=== PATIENT | female | born 1980 | race Caucasian/White ===

== ENCOUNTER 2019-05-02 05:24 | Inpatient (IN) ==
[2019-05-02] MEDS ORDERED: SOLU-MEDROL IV ONE (05:39)
[2019-05-02] MEDS ORDERED: DUONEB (A & A) INH ONE ×2 (05:40→07:07)
[2019-05-02 06:00] LABS: ALLEN TEST YES; BE 4.8 mmoll (-3.0-3.0); BLOOD TYPE ARTERIAL; HCO3-(ACT) 28.4 mmoll (20.0-26.0); O2(CT) 19.4 mL/dL (15.0-23.0); PO2(98.6) 64 mmHg (60-100); SAMPLE BLOOD; SAO2 94.5 % (95.0-100.0); THB 15.4 g/dL (11.5-17.4); pH(98.6) 7.37 (7.35-7.45)
[2019-05-02 06:01] LABS: O2HB 89.9 % (95.0-99.0); PCO2(98.6) 55 mmHg (35-45)
[2019-05-02 06:02] LABS: MODALITY CANNULA
[2019-05-02 06:07] LABS: BASO# 0.05 X1000 (0.0-0.2); BASO% 0.7 % (0.0-0.8); EOS# 0.09 X1000 (0.0-0.7); EOS% 1.3 % (0.0-10.0); HEMATOCRIT 46.3 % (37.0-47.0); HEMOGLOBIN 14.5 g/dL (12.0-16.0); IMM GRAN# 0.04 X1000 (0.0-0.04); IMM GRAN% 0.6 % (0.0-0.5); LYMPH# 1.55 X1000 (1.2-3.4); LYMPH% 22.4 % (20.5-51.1); MCH 30.1 PG (27-31); MCHC 31.3 g/dL (33-37); MCV 96.3 FL (81-99); MONO# 0.74 X1000 (0.11-0.59); MONO% 10.7 % (1.7-9.3); NEUT# 4.44 X1000 (1.4-6.5); NEUT% 64.3 % (42.2-75.2); PLT 307 X1000 (130-400); RBC 4.81 XMIL (4.2-5.4); RDW 13.2 % (11.5-14.5); WBC 6.91 X1000 (4.8-10.8)
[2019-05-02] MEDS ORDERED: ATIVAN IV ONE (06:12)
--- NOTE | 2019-05-02 06:18 | PROVIDER DOCUMENTATION ---
HPI-General Adult - General Chief Complaint: Shortness of Breath Stated Complaint: sob Time Seen by Provider: 05/02/19 06:11 Source: patient, EMS Allergies/Adverse Reactions: Patient Allergies Allergy/AdvReac Type Severity Reaction Status Date / Time levofloxacin [From Levaquin] Allergy Unknown Verified 04/15/18 09:26 sulfamethoxazole AdvReac Intermediate NAUSEA/VOMI Verified 02/04/18 20:47 [From Bactrim] TING trimethoprim [From Bactrim] AdvReac Intermediate NAUSEA/VOMI Verified 02/04/18 20:47 TING metoclopramide [From Reglan] AdvReac Unknown Verified 04/15/19 10:07 Home Medications: Home Medication List Medication Instructions Recorded Confirmed Last Taken Type Bupropion HCl [Wellbutrin Xl] 300 mg PO DAILY 11/27/17 05/02/19 02/04/18 History Carvedilol [Coreg] 6.25 mg PO BID 11/27/17 05/02/19 02/04/18 History Gabapentin 400 mg PO TID 11/27/17 05/02/19 02/04/18 History Oxcarbazepine [Trileptal] 450 mg PO BID 11/27/17 05/02/19 02/04/18 History Phentermine HCl [Adipex-P] 37.5 mg PO DAILY 02/04/18 05/02/19 02/04/18 History Albuterol [Albuterol Neb] 2.5 mg INH Q4-6H PRN PRN #1 b 04/15/19 05/02/19 Unknown Rx Montelukast Chew [Singulair] 4 mg PO DAILY #10 tab 04/15/19 05/02/19 Unknown Rx Nebulizer [Compact Ultrasonic 1 ea MC Q4-6H PRN PRN #1 ea 04/15/19 05/02/19 Unknown Rx Nebulizer] Buspirone [Buspar] 10 mg PO DAILY 05/02/19 05/02/19 Unknown History - History of Present Illness -Gen Adult Nature of Presenting Problems: PT PRESENTS TO E.D. WITH WHEEZING, SOB, CP, NECK PAIN, ANXIETY. REPORTS INCREASE IN WHEEZING AEDN CHST PAIN TONIGHT COMPARED TO RECENT NIGHTS AND M ORE CHEST PAIN THAN USUAL. HAS HAD INCREASED CUGHING AND WHEEZING PAST 4-5 DAYS WITH INCRE ASE SPTUM THAT IS WHITE AND SL YELLOW. NO FEVER. OPINES THAT HARD COUGHING MAY HAVE CAUSED CP OR THAT MISSED 2 DOSES OF BUSPAR PRODUCED ANXIETY THAT PROGHT ON CHEST PAIN. NO CARDIAC HX. NOT DIAGNOSED WITH COPD BUT IS BETTER WITH NEB ALBUTEROL RECENTLY PRESCRIBED BY PCP. HX OF TACHYCARDIA TREATED WITH COREG. Review of Systems - Adult - REVIEW OF SYSTEMS - ADULT Constitutional: reports: no symptoms reported, fatique. denies: chills, fever Eyes: reports: no symptoms reported Ears, Nose, Mouth & Throat: reports: no symptoms reported Cardiovascular: reports: see HPI, chest pain Respiratory: reports: see HPI Gastrointestinal: reports: no symptoms reported Genitourinary: reports: no symptoms reported Musculoskeletal: reports: no symptoms reported Integumentary: reports: no symptoms reported Neurological: reports: no symptoms reported Psychiatric: reports: no symptoms reported Endocrine: reports: no symptoms reported Hematologic/Lymphatic: reports: no symptoms reported Allergic/Immunologic: reports: no symptoms reported All Other Systems: Reviewed and Negative Past History - Adult - PAST MEDICAL HISTORY-ADULT Review of Records: reports: Old Records Reviewed Major Childhood Illnesses: reports: denies history Cardiovascular: reports: denies history Respiratory: reports: denies history Gastrointestinal: reports: denies history, ulcer (in perirectal area) Obstetrical/Gynecological: reports: denies history Genitourinary: reports: kidney stones Musculoskeletal: reports: denies history Neurological: reports: denies history Psychiatric: reports: depression Endocrine/Immune: reports: denies history Other Conditions: reports: denies history - PRIOR SURGERIES/PROCEDURES Surgical/Procedure History: reports: reviewed, not pertinent, other (pilonidal cyst/abscess excision) - IMMUNIZATION STATUS Childhood Immunizations: See Nurse Assessment Flu Vaccine: See Nurse Assessment - FAMILY HISTORY Family History: reviewed, not pertinent Physical Exam-General - PHYSICAL EXAM-ADULT Initial Vital Signs Reviewed: Yes (Tachycardic, hypertensive, hypoxic, and afebrile) - CONSTITUTIONAL General Appearance: alert, mild distress - EYES Eyes: PERRL/EOMI, pink conjunctivae - HEAD, EARS, NOSE, MOUTH & THROAT HENMT: normocephalic/atraumatic, moist mucous membranes, normal ENT inspection, pharynx normal - NECK Neck: non-tender, full range of motion, supple, normal inspection - RESPIRATORY Respiratory: chest non-tender, no pleuratic chest pain, no accessory muscle use, respiratory distress (mild), decreased breath sounds, rhonchi, wheezing, prolonged expiration - CARDIOVASCULAR Cardiovascular: normal peripheral pulses, regular rate, rhythm, no edema, no gallop, no JVD, no murmur, tachycardia - GASTROINTESTINAL (ABDOMEN) Abdominal Exam: normal bowel sounds, non tender, soft, no organomegaly, no pulsatile mass - LYMPHATIC Lymphatic: no adenopathy - MUSCULOSKELETAL Back Exam: normal inspection, no CVA tenderness, no vertebral tenderness Extremity: normal range of motion, non-tender, normal gait, normal inspection, no pedal edema, no calf tenderness, normal capillary refill - SKIN Integumentary: normal color, normal turgor, warm/dry - NEUROLOGIC Neurologic: 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 tested, grossly normal, no motor/sensory deficits - PSYCHIATRIC Psych/Mental Status: normal mood/affect, normal thought content, normal thought process, oriented x 3 Progress - PLAN OF CARE/RESULTS Progress/Plan/Lab Results: Vital Signs - 8 hr 05/02/19 05:30 05/02/19 05:50 Temperature 98.2 F Pulse Rate 107 H 96 H Respiratory Rate 20 18 Blood Pressure 142/98 O2 Sat by Pulse Oximetry 85 L 94 L Laboratory Results - last 24 hr 05/02/19 05/02/19 05:50 05:58 WBC 6.91 RBC 4.81 Hgb 14.5 Hct 46.3 MCV 96.3 MCH 30.1 MCHC 31.3 L RDW Std Deviation 13.2 Plt Count 307 MPV 9.0 Immature Gran % (Auto) 0.6 H Neut % (Auto) 64.3 Lymph % (Auto) 22.4 [place] % (Auto) 10.7 H Eos % (Auto) 1.3 Baso % (Auto) 0.7 Immature Gran # (Auto) 0.04 Neut # (Auto) 4.44 Lymph # (Auto) 1.55 [place] # (Auto) 0.74 H Eos # (Auto) 0.09 Baso # (Auto) 0.05 Specimen Type ARTERIAL Sample Site R RADIAL pH 7.37 pCO2 55 H* pO2 64 HCO3 28.4 H Base Excess 4.8 H Oxyhemoglobin 89.9 L* ABG O2 Sat (Calculated) 19.4 ABG O2 Saturation 94.5 L ABG Carboxyhemoglobin 4.00 H ABG Methemoglobin 1.0 [place] Test YES A-a O2 Difference 67.0 Total Hemoglobin 15.4 Lactate 0.90 Blood Gas Modality CANNULA FiO2 % 28.0 Orders Category Date Time Status Cardiac Monitoring DIRECTED Care 05/02/19 05:39 Active ED: Urine Bedside NOW Care 05/02/19 05:42 Active Oxygen Therapy- ED Nursing DIRECTED Care 05/02/19 05:39 Active Saline Loc NOW Care 05/02/19 05:39 Active CHEST-PORTABLE [RAD] Stat Exams 05/02/19 05:39 Ordered ABG [RESP] Routine Lab 05/02/19 05:50 Completed BLOOD CULTURE [BLDCUL] Stat Lab 05/02/19 05:42 Uncollected CBC WITH ELECTRONIC DIFF [HEME] Stat Lab 05/02/19 05:58 Completed CK PROFILE [SP CHEM] Stat Lab 05/02/19 05:58 Received COMPREHENSIVE METABOLIC PANEL [CHEM] Stat Lab 05/02/19 05:58 Received LACTATE, PLASMA [CHEM] Stat Lab 05/02/19 05:58 Received PRO B-NATRIURETIC PEPTIDE Stat Lab 05/02/19 05:58 Received PROTIME WITH INR [COAG] Stat Lab 05/02/19 05:58 Received PTT [COAG] Stat Lab 05/02/19 05:58 Received TROPONIN T Stat Lab 05/02/19 05:58 Received UA NIMS W/REFLEX CULT [URINALYSIS] Stat Lab 05/02/19 05:42 Uncollected Albuterol 2.5MG/Ipratrop 0.5MG [Duoneb (A & A)] Med 05/02/19 05:40 Discontinued 3 ml INH NOW ONE Lorazepam [Ativan] Med 05/02/19 06:12 Once 2 mg IV NOW ONE Methylprednisolone Sod Succ [Solu-Medrol] Med 05/02/19 05:39 Discontinued 125 mg IV NOW ONE Aerosol Treatments Routine Oth 05/02/19 05:40 Completed Aerosol Treatments Stat Oth 05/02/19 05:40 Completed CP/SOB/Palp >45 yrs of Age Stat Oth 05/02/19 05:38 Ordered EKG [EKG] Stat Ther 05/02/19 05:39 Ordered Result Diagrams: 05/02/19 05:58 05/02/19 05:58 - REASSESSMENT Reassessment #1 Time Reassessed: 08:19 Status: unchanged (Seen and examined by me. Case discussed with Dr. Byrne at shift change. Patient has now received four neb treatments, still wheezes, O2 sats 92% on 2L by NC, 88% when taking of O2. Has received Rocephin and solu- medrol, will add Zithromax and pulmicort neb and ask hospitalist to admit fo obs) - EKG 1 Time of EKG reading by physician:: 05:36 EKG Read and Signed by:: Rosas Byrne EKG Interpretation (*Must complete 3 of following elements*): Abnormal Rate: 110 Rhythm: NSR [place]: normal (SINUS TACHY, NONSPECIFIC ST CHANGES) QRS: normal MS Interval: normal ST Wave: non-specific ST changes - XRAY 1 XRAY Study: Chest Impression: Normal, See EMR Report - CONSULTS/PCP/HOSPITALIST Notification #1 *Consult/PCP/Hospitalist*: MALOU Merritt, underground production foreperson for hospitalist Time Discussed: 08:23 Reason/Comments: requests CTA chest to be ordered. Consult Disposition: Will see in ED, Admit - CHANGE OF SHIFT REPORT (ED Provider) 1 Report Given and Care Transferred to:: DR YATES Time of Transfer: 07:10 Departure - Departure Date of Disposition Decision: 05/02/19 Time of Disposition Decision: 08:23 DIAGNOSIS: COPD exacerbation, Hypoxemia requiring supplemental oxygen Disposition: ADMITTED INPATIENT 09 Certified Medical Emergency: Emergent Condition: Fair Referrals and Follow-Ups: MALINDA FELICIANO [Primary Care Provider] - - Critical Care Note This patient required my direct & personal management of CC.: Yes Total Time (mins): 40 (given a total of 5 neb treatments, other meds for respiratory difficulties. ) Critical Care Statement: This patient required my direct personal management to treat or rule out processes, the absence of which, could potentiallly result in sudden, clinically significant life or limb threatening deterioration. Attestation - Physician/ BIJAN Attestation Patient care was provided by Advanced Practice Provider:: No The physician spent face to face time with patient:: Yes Advanced Practice Provider documentation review:: Supervising physician onsite and consulted in the evaluation and care of this patient. The physician did have a face to face encounter with the patient.
[2019-05-02 06:26] LABS: AGAP 13; ALB/GLOB RATIO 1.6; ALKALINE PHOSPHATASE 102 U/L (32-104); BUN 7 mg/dL (8-22); CALCIUM 8.8 mg/dL (8.8-10.2); CHLORIDE 95 mmol/L (98-107); CK PROFILE 42 U/L (24-173); COSMO 272; CREATININE 0.6 mg/dL (0.5-0.9); ESTIMATED GFR > 60; GLUCOSE 111 mg/dL (70-104); GOT 14 U/L (10-30); GPT 18 U/L (10-36); POTASSIUM 3.7 mmol/L (3.5-5.1); SODIUM 137 mmol/L (136-145); TCO2 29 mmol/L (25-35); TOTAL BILIRUBIN 0.28 mg/dL (0.20-1.00); TOTAL PROTEIN 6.5 g/dL (6.3-8.3)
[2019-05-02 06:34] LABS: URINE SOURCE CLEAN CATCH
[2019-05-02 06:36] LABS: INR 1.01; PROTIME 13.4 Seconds (11.0-16.0); PTT 30.1 Seconds (22.3-41.8)
[2019-05-02 06:38] LABS: BILIRUBIN URINE NEGATIVE (NEGATIVE); BLOOD URINE TRACE (NEGATIVE); COLOR YELLOW; GLUCOSE URINE NEGATIVE (NEGATIVE); KETONE URINE TRACE mg/dL (NEGATIVE); LEUKOCYTES URINE SMALL (NEGATIVE); NITRITE URINE NEGATIVE (NEGATIVE); PROTEIN URINE TRACE mg/dL (NEGATIVE); SP GRAVITY URINE 1.016; TURBIDITY URINE CLEAR (CLEAR); UROBILINOGEN URINE NORMAL (NORMAL)
[2019-05-02 06:39] LABS: UR EPITHELIAL CELLS <10 /HPF (<10); URINE BACTERIA 1+ /HPF; URINE RBC <10 /HPF (<10); URINE WBC <10 /HPF (<10)
--- NOTE | 2019-05-02 07:04 | Diag Imaging Result Doc PS360 ---
EXAM: CHEST-PORTABLE 05/02/2019 HISTORY: sob TECHNIQUE: AP portable upright at 0632 COMMENT: Considering differences in technique there has been no significant change since 04/15/2019. The inspiration is slightly less optimal. IMPRESSION: No evidence of acute disease. Electronically signed by Abel Zheng 05/02/2019 7:02 AM
[2019-05-02] MEDS ORDERED: BUSPAR PO ONE (07:06)
[2019-05-02] MEDS ORDERED: ROCEPHIN 1 GM in NS 50 ML IV ONE (07:06)
[2019-05-02] MEDS ORDERED: NS 1,000 ML IV ONE (07:07)
--- NOTE | 2019-05-02 07:09 | EKG Report ---
Test Performed on : 05/02/2019 05:34:10 AM Test Reason : sob Blood Pressure : / mmHG Vent. Rate : 110 BPM Atrial Rate : 110 BPM P-R Int : 120 ms QRS Dur : 088 ms QT Int : 366 ms P-R-T Axes : 071 008 043 degrees QTc Int : 495 ms Sinus tachycardia. Nonspecific ST abnormality Abnormal ECG When compared with ECG of 11-NOV-2012 18:35, No significant change was found Unconfirmed Result
[2019-05-02] MEDS ORDERED: PULMICORT INH ONE (08:18)
[2019-05-02] MEDS ORDERED: ZITHROMAX 500 MG/NS 500 MG/250 ML IVPB IV ONE (08:18)
[2019-05-02] MEDS ORDERED: ZOFRAN IV PRN (08:54)
[2019-05-02] MEDS ORDERED: DUONEB (A & A) INH PRN (08:54)
[2019-05-02] MEDS ORDERED: PHENERGAN PO PRN (09:28)
--- NOTE | 2019-05-02 10:04 | Diag Imaging Result Doc PS360 ---
EXAM: CT ANGIOGRM PULMONARY ARTERIES 05/02/2019 HISTORY: COPD exacerbation, hypoxemia TECHNIQUE: This exam was performed using automated exposure control, adjustment of mA or kV according to patient size, and/or use of iterative reconstruction technique. COMMENT: 3-D MIPS were performed. There are no previous studies. There are no filling defects in the pulmonary arteries. The aorta is not distended and there is no evidence of dissection. There are no abnormal fluid collections. There is no evidence of significant adenopathy. There is a groundglass appearing nodule present in the mid left upper lobe on image 36. No airspace abnormalities are otherwise demonstrated. The regional skeleton is unremarkable. IMPRESSION: Groundglass nodule in the left upper lobe. The possibility of mild pneumonitis/pneumonia cannot be excluded. Six-month follow-up is recommended to ensure the resolution of this abnormality. Electronically signed by Abel Zheng 05/02/2019 10:02 AM
[2019-05-02] MEDS: DUONEB (A & A) INH SCH ×4 (11:23→23:06)
--- NOTE | 2019-05-02 13:09 | HISTORY AND PHYSICAL ---
PRIMARY CARE PROVIDER: Is located, I believe a nurse practitioner, at [facility] in the [facility]. CHIEF COMPLAINT: Shortness of breath. HISTORY OF PRESENT ILLNESS: Ms. Iman Lazo is a 39-year-old female with a medical history of morbid obesity with BMI being 54.9, tachycardia for which she takes Coreg for, nephrolithiasis, gallstones but has since had her gallbladder removed, pilonidal cyst with abscess excision and drainage, and recently had a vaping history and currently smokes cigarettes who presents with six months' complaints of wheezing. She has had a cough for 2 weeks. Around 2 weeks ago she was positive for flu and took Tamiflu for it. This past Sunday, which was about 5 days ago, she started having chest pain with her cough, increasing dyspnea with activity, no fever but positive for chills, and a [id number] productive cough. For the last 2 days she has had a headache on and off. She felt like the symptoms had worsened over the last 24 hours as if she felt like she was suffocating or drowning. She states that currently she smokes cigarettes and she has smoked for the last 3 months and prior to that she had been vaping for 2 years. The only reason she switched to cigarettes was because of what she had been hearing about the dangers of vaping. We will admit to the medical floor. There is no history of COPD or asthma but she does have signs of CO2 retention with a normalized pH. We will consult Pulmonary for further recommendations. PAST MEDICAL HISTORY: 1. Morbid obesity. BMI is 54.9. Currently she is on Adipex to try and lose weight. 2. Pilonidal cyst with a history of incision and drainage. She states that it still drains even after 2 years. 3. Nephrolithiasis but never had any procedures for it. 4. Gallstones and is now status post cholecystectomy. 5. GERD. 6. Chronic gastritis. 7. Bipolar with anxiety and depression. 8. Peripheral neuropathy. SURGICAL HISTORY: 1. Cholecystectomy. 2. [place] teeth extraction. 3. Pilonidal cyst or sinus incision and drainage in the perirectal region. SOCIAL HISTORY: Long-time smoker but for the last 2 years she vaped up until 3 months ago and now she smokes less than a half pack per day of cigarettes. She felt like vaping may be the source of her respiratory problems and that is why she switched. She only drinks alcohol about once every 2 months, maybe a half a glass of wine. Denies any illicit drug use. She lives at home with her partner. She currently does not work. FAMILY HISTORY: She is adopted but she has 2 biological sisters and both have thyroid problems and endometriosis. ALLERGIES: Levofloxacin, Bactrim, Reglan, and Zofran. Apparently IV Zofran gives her a rash. HOME MEDICATIONS: 1. Phentermine 37.5 mg p.o. daily. 2. BuSpar 10 mg p.o. daily. 3. Coreg 6.25 mg p.o. twice daily. 4. Neurontin 400 mg p.o. t.i.d. 5. Trileptal 450 mg p.o. twice daily. 6. Wellbutrin 300 mg p.o. daily. 7. Albuterol nebulizers every 4 to 6 hours p.r.n. 8. Singulair 4 mg p.o. daily. REVIEW OF SYSTEMS: Fourteen point review of systems are complete and all are negative except for those mentioned above in the HPI. PHYSICAL EXAMINATION: VITAL SIGNS: Temperature is 98, heart rate 107, respiratory rate 22, blood pressure 146/88, and O2 saturation 94% on 4 L nasal cannula. GENERAL: Ms. Iman Lazo is a 39-year-old female. She is in no acute distress. She is mildly short of breath but she is able to answer questions appropriately. HEENT: Atraumatic, normocephalic. Pupils are equal, round, and reactive to light. Extraocular movements are intact. Mucous membranes are moist. NECK: Trachea is midline. CARDIOVASCULAR: S1, S2. Tachycardic rate and rhythm. No rubs, gallops, or murmurs. No lower extremity edema. Pulse 2 dorsalis and radial pulses. Negative for JVD or carotid bruits. PULMONARY: Expiratory wheezes noted throughout. No accessory muscle use just very mild work of breathing. She is tolerating 4 L nasal cannula. GI: Obese, round, soft, nontender, and nondistended. Positive bowel sounds times 4. EXTREMITIES: Moves all extremities equally and with full range of motion. NEURO: Alert and oriented times 3. Follows commands. Sensory is intact. SKIN: Warm, dry, and intact. LABORATORY DATA: White blood cells 6,000, hemoglobin 14, hematocrit 46, and platelet count 307. INR is 1.01. PTT is 30.1. D-dimer is 0.27. ABG on nasal cannula: pH 7.37, pCO2 55, pO2 64, bicarb 28, base excess 4.8, and saturation 89.9%. Lactate is 0.9. Sodium 137, potassium 3.7, BUN 7, creatinine 0.6, glucose 111, calcium 8.8, bilirubin 0.28, AST 14, and ALT 18. CK 42, troponin less than 0.01, and proBNP 69. Albumin 4. Lactate 0.7. Urinalysis: Trace protein, trace ketones, trace blood, small leukocytes, and 1+ bacteria. IMAGING: Negative for PE per phone report by Dr. Zheng. Impression: Ground glass nodule in the left upper lobe. Possibility of mild pneumonitis or pneumonia cannot be excluded. A 6 month followup is recommended to ensure resolution of this abnormality. Chest x-ray: No evidence of acute disease. EKG: Sinus tachycardia, rate 110. QTc is 495. ASSESSMENT AND PLAN: 1. Acute hypoxemic respiratory failure secondary to possible pneumonitis or pneumonia and possible history of undiagnosed asthma or chronic obstructive pulmonary disease. Also, history of 2 years of using vape. This was discussed with Dr. Abel Zheng and he felt like there was no obvious signs of a vape-related type injury on imaging. She currently is a smoker. So, we will do antibiotics. There was no PE on the imaging either so IV fluids and antibiotics. We will do a pulmonary consult for appropriate diagnosis of the patient's possible chronic lung disease. Symptoms have been going on for about 6 months and she did also have the flu around 2 weeks ago. 2. Pilonidal cyst or sinus that continuously drains. It has drained for the last 2 years. Currently she is having an echocardiogram done so I was unable to evaluate this location so we will need to still look at that. White count is normal. She had incision and drainage of it around 2 years ago in [place]. 3. Tachycardia. She states that she takes Coreg for her tachycardia. She runs in the one-teens to the 120s. She denies having high blood pressure. 4. Gastroesophageal reflux disease and chronic gastritis but she is not on anything at home for it. 5. Bipolar disorder with anxiety and depression. Continue the Trileptal. 6. Peripheral neuropathy. Continue Neurontin. 7. Morbid obesity with a body mass index of 54.9. She is on Adipex at home. I am not sure for how long she has been on that to try and lose weight. Currently she is going to have an echocardiogram to evaluate any kind of heart dysfunction from this and the morbid obesity. She denies having any history of heart failure. 8. Tobacco abuse. Cessation was discussed. 9. Deep vein thrombosis prophylaxis with Lovenox. Dictated by MALOU Gonzalez for Josue Urbina MD cc: MALOU Gonzalez MD
[2019-05-02] MEDS: WELLBUTRIN XL PO SCH (13:55)
[2019-05-02] MEDS: LOVENOX SUBQ SCH (13:56)
[2019-05-02] MEDS: COREG PO SCH ×2 (13:56→20:33)
[2019-05-02] MEDS: NICODERM PATCH TD SCH (13:56)
[2019-05-02] MEDS: NS 1,000 ML IV SCH (13:56)
[2019-05-02] MEDS: TRILEPTAL PO SCH ×2 (13:56→20:33)
[2019-05-02] MEDS: SOLU-MEDROL IV SCH ×2 (14:05→20:34)
[2019-05-02] MEDS: NEURONTIN PO SCH ×2 (14:05→20:33)
[2019-05-02] MEDS: TYLENOL PO PRN ×2 (14:06→20:34)
[2019-05-02] MEDS: PULMICORT INH SCH (19:19)
--- NOTE | 2019-05-02 19:42 | ECHO REPORT ---
ORDER DATE: 05/02/2019 INDICATION: Shortness of breath. Chest pain. FINDINGS: This is an extremely difficult study with poor visualization of the endocardial borders. 1. The right heart structures are extremely difficult to visualize. There is probable normal RV systolic function but overall size of the right ventricle is difficult to estimate. The valvular structures on the right side of the heart are also difficult to visualize. 2. The left atrium is probably normal in size but again, very difficult to visualize and accurately measure. 3. No mitral valve prolapse. Trace mitral regurgitation. No evidence of stenosis. 4. The left ventricle is normal in size with an end-diastolic dimension of 3.8 cm. No clear evidence of left ventricular hypertrophy with a septal wall thickness of 1.1 cm. LV systolic function appears normal with an estimated EF of 60% to 65%. It is extremely difficult to assess for segmental abnormalities but it does not appear to be present. 5. Aortic valve appears to open well with no evidence of stenosis or insufficiency. 6. Aorta appears normal in visualized segments. 7. No pericardial effusion seen. cc: MD Shaina Anderson CRNP
--- NOTE | 2019-05-02 20:55 | HISTORY AND PHYSICAL ---
ADDENDUM: I have seen and examined Ms. Lazo today, who presented with shortness of breath for the past 2 to 3 days, preceded initially with cough. She thought he had the flu. He took Tamiflu, but the symptoms have been lingering around. The cough became productive with yellowish sputum. For the past 24 hours, she has remained remarkably symptomatic with shortness of breath. She came to the emergency department where she was evaluated, was found to be 85% on room air, and an ABG showed a pCO2 of 55, a PO2 of 64, with oxygen hemoglobin 89.9, but carboxyhemoglobin level was 4.0. PHYSICAL EXAMINATION: GENERAL: Ms. Lazo is morbidly obese with BMI of 54.9. CHEST: Air entry is bilaterally reduced. A few distant wheezes bilaterally. IMAGING STUDIES: CTA was negative for pulmonary emboli. There are ground-glass nodules in the left upper lobe, possibility of mild pneumonitis/pneumonia cannot be excluded. ASSESSMENT: 1. Acute hypoxemic respiratory failure. 2. Acute on chronic hypercarbic respiratory failure. 3. Morbid obesity with suspicion of obesity-hypoventilation syndrome and obstructive sleep apnea. 4. History of vaping with possibly pneumonitis associated with it. 5. Tobacco use and abuse. Patient has been counseled. 6. History of bipolar disorder. PLAN: For now, we are going to continue with supplemental oxygen. We will also use BiPAP, especially when patient is going to sleep. We are going to repeat her lab work for tomorrow. Ms. Lazo is started on nebulization, antibiotics, and steroid therapy. We will re-evaluate her in the morning and go from there. Please refer to the details of the history and physical which has been dictated in the chart by the nurse practitioner. cc: Josue Urbina MD
[2019-05-03] MEDS: SOLU-MEDROL IV SCH ×4 (01:28→22:30)
[2019-05-03] MEDS: DUONEB (A & A) INH SCH ×6 (03:29→22:57)
[2019-05-03 03:52] LABS: ALLEN TEST YES; BE 3.6 mmoll (-3.0-3.0); BLOOD TYPE ARTERIAL; HCO3-(ACT) 27.5 mmoll (20.0-26.0); METHB 0.9 % (0.0-1.5); O2(CT) 19.4 mL/dL (15.0-23.0); PO2(98.6) 56 mmHg (60-100); SAMPLE BLOOD; SAO2 92.1 % (95.0-100.0); THB 15.4 g/dL (11.5-17.4); pH(98.6) 7.35 (7.35-7.45)
[2019-05-03 03:54] LABS: MODALITY CANNULA; O2HB 89.7 % (95.0-99.0); PCO2(98.6) 56 mmHg (35-45)
[2019-05-03] MEDS: NS 1,000 ML IV SCH (04:24)
[2019-05-03] MEDS ORDERED: NS 50 ML ONE (06:03)
[2019-05-03] MEDS: NEURONTIN PO SCH ×4 (06:18→20:26)
[2019-05-03] MEDS: PROTONIX PO SCH (06:18)
[2019-05-03 06:59] LABS: BASO# 0.01 X1000 (0.0-0.2); BASO% 0.1 % (0.0-0.8); HEMATOCRIT 45.6 % (37.0-47.0); HEMOGLOBIN 14.9 g/dL (12.0-16.0); IMM GRAN# 0.05 X1000 (0.0-0.04); IMM GRAN% 0.6 % (0.0-0.5); LYMPH# 1.47 X1000 (1.2-3.4); LYMPH% 17.1 % (20.5-51.1); MCHC 32.7 g/dL (33-37); MONO# 0.68 X1000 (0.11-0.59); MONO% 7.9 % (1.7-9.3); MPV 9.5 FL (7.4-10.4); NEUT# 6.39 X1000 (1.4-6.5); NEUT% 74.3 % (42.2-75.2); PLT 357 X1000 (130-400); RDW 13.1 % (11.5-14.5)
[2019-05-03 07:17] LABS: AGAP 14; ALB/GLOB RATIO 1.5; ALBUMIN 4.3 g/dL (3.5-5.0); ALKALINE PHOSPHATASE 104 U/L (32-104); BUN 5 mg/dL (8-22); CALCIUM 9.2 mg/dL (8.8-10.2); CHLORIDE 98 mmol/L (98-107); COSMO 276; CREATININE 0.7 mg/dL (0.5-0.9); ESTIMATED GFR > 60; GLUCOSE 128 mg/dL (70-104); GOT 11 U/L (10-30); GPT 14 U/L (10-36); POTASSIUM 3.7 mmol/L (3.5-5.1); SODIUM 139 mmol/L (136-145); TCO2 27 mmol/L (25-35); TOTAL BILIRUBIN 0.18 mg/dL (0.20-1.00); TOTAL PROTEIN 7.1 g/dL (6.3-8.3)
[2019-05-03] MEDS: PULMICORT INH SCH ×2 (07:30→19:21)
[2019-05-03] MEDS: COREG PO SCH ×2 (08:32→20:24)
[2019-05-03] MEDS: WELLBUTRIN XL PO SCH (08:32)
[2019-05-03] MEDS: ROCEPHIN 1 GM in NS 50 ML IV SCH (08:32)
[2019-05-03] MEDS: TRILEPTAL PO SCH ×2 (08:32→20:23)
[2019-05-03] MEDS: NICODERM PATCH TD SCH (08:33)
[2019-05-03] MEDS: LOVENOX SUBQ SCH (08:33)
[2019-05-03] MEDS ORDERED: BUSPAR PO SCH (09:00)
[2019-05-03] MEDS ORDERED: SINGULAIR PO SCH (09:00)
[2019-05-03] MEDS: DOXYCYCLINE 100 MG in NS 250 ML IV SCH ×2 (13:11→22:06)
--- NOTE | 2019-05-03 14:57 | PROGRESS NOTE ---
DATE: 05/03/2019 SUBJECTIVE: This morning Ms. Lazo refers to be doing a whole lot better. She was still on a nasal cannula. OBJECTIVE: Vital signs: Blood pressure is 142/82, pulse of 103, respiration is 16, temperature is 98 degrees. Patient was saturating 93%. General: Ms. Lazo is a 39-year-old morbidly obese female. She is in bed. No distress. HEENT: Mucosa is pink and moist. Anicteric. Acyanotic. Neck: Supple. Chest: Air entry is bilaterally reduced. There is diffuse end expiratory wheezing. Cardiovascular: Regular rate and rhythm. Abdomen: Soft, nontender. Bowel sounds present. Extremities: No pedal edema. DIETARY ASSISTANT: Patient is awake, alert, and oriented. LABORATORY DATA: CBC is unremarkable. Chemistry is completely within normal range. IMAGING STUDIES: Were reviewed yesterday. Echocardiogram which was done shows ejection fraction of 60 to 65 percent. ASSESSMENT: 1. Acute hypoxemic respiratory failure. Patient continues to be needing supplemental oxygen. 2. Acute on chronic hypercarbic respiratory failure, most likely due to underlying COPD. 3. Morbid obesity with suspected obstructive sleep apnea. 4. Tobacco use and abuse. Patient has been counseled. 5. History of vaping with possible vaping associated pneumonitis. We will continue with bronchodilation therapy. 6. Suspected undiagnosed COPD. Patient will need to follow up with Pulmonary Medicine for PFTs. 7. History of bipolar disorder. PLAN: In general, I think Ms. Lazo is doing a lot better. She refers to be doing much better today. She is still on a supplemental oxygen and she is pending Pulmonary Medicine consult. Will be pending recommendations from Pulmonary and then go from there. Ms. Lazo might be stable for discharge if it is okay with Pulmonary Medicine. cc: Josue Urbina MD
[2019-05-03] MEDS: BUSPAR PO SCH ×2 (15:20→20:23)
--- NOTE | 2019-05-03 17:00 | Diag Imaging Result Doc PS360 ---
EXAM: CHEST-2 VIEWS HISTORY: short of breath TECHNIQUE: Two views COMPARISON: 05/02/2019 FINDINGS: The lungs are well expanded. The heart is not enlarged. The vessels are not distended. There are no infiltrates. No pleural effusions. IMPRESSION: No acute abnormality. Electronically signed by Marek Kirk 05/03/2019 4:58 PM
[2019-05-03] MEDS ORDERED: NS 250 ML ONE (22:15)
--- NOTE | 2019-05-03 22:35 | PULMONOLOGY CONSULTATION ---
DATE: 05/03/2019 REQUESTING CLINICIAN: Dr. Sonu Urbina. REASON FOR CONSULTATION: Hypoxemia; could the patient have asthma or COPD that has never been diagnosed? HISTORY OF PRESENT ILLNESS: Ms. Lazo is a 39-year-old white female with bipolar disorder, morbid obesity and a BMI greater than 50, who had an episode of influenza about 2 weeks ago. This was flu. She had a positive flu test and received Tamiflu. She improved from this acute illness, and subsequently developed cough with increased sputum production, increased wheezing, and increasing shortness of breath. The patient has a history of tobacco use since her teenage years. She did vape for 2 years but restarted smoking about 3 months ago. She has been initiated on antibiotics, steroids and bronchodilators on this admission, with symptomatic improvement. PAST MEDICAL HISTORY: 1. Bipolar disorder. 2. Ongoing tobacco use/nicotine addiction. 3. Morbid obesity with a BMI of 55. She is currently on Adipex and reports she has lost 20 pounds. 4. History of nephrolithiasis. 5. Status post cholecystectomy. 6. Reflux disease. 7. Peripheral neuropathy. 8. Bipolar disorder. SOCIAL HISTORY: Ongoing tobacco use as per HPI. Occasional alcohol use. She denies illicit drug use. FAMILY HISTORY: Noncontributory to the current presentation. REVIEW OF SYSTEMS: As noted in the HPI. PHYSICAL EXAMINATION: Physical exam reveals an obese white female resting comfortably and in no distress. BP 112/52, heart rate 103, respiratory rate 16, oxygen saturation 99% on 2 L per nasal cannula.HEENT: Pupils are equal and reactive. Oropharynx appears clear. Neck is supple. Chest reveals wheezing and rhonchi bilaterally. Cardiac exam: S1, S2. Abdomen is soft. Extremities reveal trace edema. LABORATORY DATA: Arterial blood gas on admission to the hospital, pH 7.37, pCO2 of 55, pO2 of 64 with a carboxyhemoglobin level of 4. Arterial blood gas this morning on 4 L per nasal cannula, pH 7.35, pCO2 of 36, pO2 of 56. DIAGNOSTIC DATA: CT pulmonary angiogram reveals ground-glass nodule in the left upper lobe of unknown significance. IMPRESSION: A 39-year-old female with: 1. Acute hypoxemic respiratory failure. 2. Acute bronchitis following an influenzal illness. 3. Chronic hypercapnic respiratory failure, likely related to super morbid obesity. 4. Ongoing tobacco use. 5. Ground-glass pulmonary nodule. DISCUSSION: A 39-year-old with problems outlined above. The patient has an acute illness following an influenzal illness. She cannot be diagnosed with asthma or COPD at this time, given the acute nature of her respiratory process. She does have chronic hypercapnic respiratory failure, but this is most likely related to her super morbid obesity. RECOMMENDATIONS: 1. Agree with steroids, current antibiotics and nebulizer regimen as you are doing. 2. Ongoing smoking cessation discussion/recommendation. 3. Long-term, the patient would benefit from significant weight loss. She is unlikely to make it to the age of 62 if she continues to smoke and does not lose a significant amount weight. 4. Recommend outpatient CT scan of the thorax as recommended by the radiologist to follow up the nonspecific ground-glass nodule. cc: Amish Thakkar MD
[2019-05-04] MEDS: DUONEB (A & A) INH SCH ×2 (03:20→08:00)
[2019-05-04] MEDS: PROTONIX PO SCH (06:05)
[2019-05-04] MEDS: SOLU-MEDROL IV SCH (06:06)
[2019-05-04 07:12] LABS: BASO# 0.02 X1000 (0.0-0.2); BASO% 0.2 % (0.0-0.8); EOS# 0.15 X1000 (0.0-0.7); EOS% 1.4 % (0.0-10.0); HEMATOCRIT 47.4 % (37.0-47.0); HEMOGLOBIN 14.6 g/dL (12.0-16.0); IMM GRAN# 0.11 X1000 (0.0-0.04); LYMPH# 1.73 X1000 (1.2-3.4); LYMPH% 16.4 % (20.5-51.1); MCHC 30.8 g/dL (33-37); MCV 97.5 FL (81-99); MONO% 5.7 % (1.7-9.3); MPV 9.7 FL (7.4-10.4); NEUT# 7.93 X1000 (1.4-6.5); NEUT% 75.3 % (42.2-75.2); PLT 301 X1000 (130-400); RBC 4.86 XMIL (4.2-5.4); RDW 13.3 % (11.5-14.5); WBC 10.54 X1000 (4.8-10.8)
[2019-05-04] MEDS ORDERED: FLU VACCINE IM ONE (07:31)
[2019-05-04 07:37] LABS: AGAP 14; ALB/GLOB RATIO 1.4; ALKALINE PHOSPHATASE 88 U/L (32-104); BUN 10 mg/dL (8-22); CHLORIDE 100 mmol/L (98-107); COSMO 277; CREATININE 0.7 mg/dL (0.5-0.9); ESTIMATED GFR > 60; GLUCOSE 137 mg/dL (70-104); GOT 15 U/L (10-30); GPT 17 U/L (10-36); SODIUM 138 mmol/L (136-145); TCO2 24 mmol/L (25-35); TOTAL BILIRUBIN 0.17 mg/dL (0.20-1.00); TOTAL PROTEIN 6.8 g/dL (6.3-8.3)
[2019-05-04 07:51] VITALS: BP 138/77
[2019-05-04] MEDS: PULMICORT INH SCH (08:00)
[2019-05-04] MEDS: LOVENOX SUBQ SCH (10:18)
[2019-05-04] MEDS: ROCEPHIN 1 GM in NS 50 ML IV SCH (10:18)
[2019-05-04] MEDS: DOXYCYCLINE 100 MG in NS 250 ML IV SCH (10:19)
[2019-05-04] MEDS: NICODERM PATCH TD SCH (10:24)
[2019-05-04] MEDS: COREG PO SCH (10:24)
[2019-05-04] MEDS: WELLBUTRIN XL PO SCH (10:24)
[2019-05-04] MEDS: BUSPAR PO SCH (10:25)
[2019-05-04] MEDS: TRILEPTAL PO SCH (10:25)
[2019-05-04] MEDS: NEURONTIN PO SCH (10:25)
[2019-05-04 13:05] LABS: CALCIUM 10.3 mg/dL (8.8-10.2)
--- NOTE | 2019-05-05 07:54 | DISCHARGE SUMMARY ---
ADMISSION DATE: 05/02/2019 DISCHARGE DATE: 05/04/2019 DISPOSITION: Home. FOLLOWUP: 1. Ms. Karla Higuera. 2. Dr. Thakkar. CONSULTATIONS DURING THIS ADMISSION: Pulmonary Medicine was consulted. The patient was seen by Dr Thakkar. INVASIVE PROCEDURES DONE DURING THIS ADMISSION: None. IMAGING STUDIES OF SIGNIFICANCE: 1. A chest x-ray on admission showed no evidence of acute disease. 2. A CTA of the lungs done on 05/02/2019 shows ground-glass nodules in the left upper lobe, possibility of mild pneumonitis. Pneumonia cannot be excluded. There was recommendation to follow up with repeat studies in 6 months. 3. Echocardiogram showed an ejection fraction of 60% to 65%. No wall motion abnormality, and no major valvular abnormality. 4. A repeat chest x-ray did show no acute disease. ADMISSION DIAGNOSES: 1. Acute hypoxemic respiratory failure. 2. Pilonidal cyst. 3. Tachycardia. 4. History of bipolar disorder. 5. Peripheral neuropathy. DISCHARGE DIAGNOSES: 1. Acute hypoxemic respiratory failure, improved. 2. Acute on chronic hypercarbic respiratory failure. 3. Morbid obesity with suspected obstructive sleep apnea. 4. Tobacco use and abuse. 5. History of vaping with possible vaping-associated pneumonitis. 6. Suspected undiagnosed chronic obstructive pulmonary disease. 7. History of bipolar disorder. DISCHARGE MEDICATIONS: 1. Bupropion 300 mg p.o. daily. 2. Carvedilol 6.25 b.i.d. 3. Gabapentin 1200 four times per day. 4. Oxcarbazepine 450 b.i.d. 5. Phentermine 37.5 p.o. daily. 6. Albuterol. 7. Buspirone 30 mg p.o. daily. 8. Augmentin 875 b.i.d. 9. Nicotine patch. 10. Prednisone 40 mg p.o. daily. 11. Doxycycline 100 mg b.i.d. 12. Pantoprazole 40 mg p.o. daily. PRESENTING COMPLAINT: Shortness of breath. HISTORY OF PRESENTING COMPLAINT: Ms. Lazo is a 39-year-old female who was recently treated for influenza illness with Tamiflu, who came to the emergency department because of continued shortness of breath, cough. The patient was initially evaluated and was found to be saturating 85% on room air, was started on supplemental oxygen. Initial chest x-ray was unremarkable. A chest CT scan did suggest ground-glass nodular opacities in the upper lobes. Ms. Lazo was subsequently admitted for further medical care. HOSPITAL COURSE: Ms. Lazo was admitted to the medical floor and was started on IV antibiotics. Bronchodilation therapy and steroids were also added. She was evaluated by Pulmonary Medicine because of concern for possible undiagnosed COPD. However, because of the acute nature of her illness, it is recommended that she follows up on an outpatient basis for further testing, including possible PFTs. Ms. Lazo continued to improve. Bronchospasm resolved during the hospital course. We think she is fairly stable to be discharged. She will follow up with Dr. Kearns and with her primary care doctor. On the day of the discharge, she refers to be doing a lot better. Chest exam did show mild prolonged expiratory phase of respiration, but there was no wheezing, no rhonchi. She is going to be discharged in stable condition. She is currently saturating 95% on room air, so she does not need any supplemental oxygen. All the discharge instructions, including tobacco cessation counseling were provided. TIME SPENT: Time spent for discharge was 35 minutes. cc: MD Amish Constantino MD Ms. Karla Higuera BRITT
== END 2019-05-04 11:08 | disposition home or self-care (01) | DRG 189 ==
LOC: SUPCPDRO → ED 05:24 → EDIPHOLD 10:30 → 3N 13:29
PROVIDERS: ATTEND Internal Medicine